=== PATIENT | female | born 1980 | race Caucasian/White ===

== ENCOUNTER 2020-11-21 08:55 | Day surgery (SDC) | payer BC, MEDICAID ==
--- NOTE | 2020-11-19 12:05 | PCM.PREANE ---
<LizaAudrey J - Last Filed: 11/19/20 12:00> Preanesthetic Assessment - Procedure Proposed Procedure: Left knee video arthroscopy, partial medial menisectomy and chondroplasty - Anesthesia/Transfusion/Family Hx Anesthesia History: Prior Anesthesia Without Reaction Family History of Anesthesia Reaction: No Transfusion History: No Prior Transfusion(s) Intubation History: Unknown - Review of Systems Pulmonary: No Symptoms (Smoker: less than 1/2 ppd times years. 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 - Imaging/EKG Impressions: 2019: EKG: NSR rate=71 - Anesthesia Plan Pre-Op Medication Ordered: None - Acknowledgements Anesthesia Type Planned: General Anesthesia (with potential left adductor canal block under US guidance for post operative pain control.) Pt an Appropriate Candidate for the Planned Anesthesia: Yes Alternatives and Risks of Anesthesia Discussed w Pt/Guardian: Yes Pt/Guardian Understands and Agrees with Anesthesia Plan: Yes <Kristen Bradnt - Last Filed: 11/21/20 09:46> Preanesthetic Assessment - Anesthesia/Transfusion/Family Hx Anesthesia History: Prior Anesthesia Without Reaction Family History of Anesthesia Reaction: No Transfusion History: No Prior Transfusion(s) - Review of Systems General: Other (i am hypoglycemic- gets nauseous and weak without eating) Pulmonary: No Symptoms Cardiovascular: No Symptoms Gastrointestinal: No Symptoms Neurological: Numbness, Seizure Other: Reports: Depression, Anxiety - Physical Assessment NPO Status Time: 21:00 Vital Signs: 76 96% 97.7 20 106/70 Height: 5 ft 3 in Weight: 103 kg ASA Class: 3 Mental Status: Alert & Oriented x3 Airway Class: Mallampati = 1 Dentition: Reports: Normal Dentition Thyro-Mental Finger Breadths: 3 Mouth Opening Finger Breadths: 3 ROM/Head Extension: Full Lungs: Normal Respiratory Effort, Wheezing Cardiovascular: Regular Rate, Regular Rhythm - Lab Values: Laboratory Last Values MRSA (PCR) Negative 11/13/20 16:35 - Blood Blood Available: No - Anesthesia Plan Pre-Op Medication Ordered: None - Acknowledgements Anesthesia Type Planned: General Anesthesia, Regional Block Pt an Appropriate Candidate for the Planned Anesthesia: Yes Alternatives and Risks of Anesthesia Discussed w Pt/Guardian: Yes Pt/Guardian Understands and Agrees with Anesthesia Plan: Yes PreAnesthesia Questionnaire HEENT History: Reports: Other (See Below) (wears glasses) Cardiovascular History: Reports: None Respiratory History: Reports: Other (See Below) (smoker) Gastrointestinal History: Reports: None Musculoskeletal History: Reports: Fibromyalgia Neurological History: Reports: Other (See Below) (neuropathy- 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) Endocrine/Metabolic History: Reports: Obesity/BMI 30+ - Past Surgical History GI Surgical History: Reports: Cholecystectomy Female Surgical History: Reports: Section, Tubal Ligation Musculoskeletal Surgical History: Reports: Arthroscopic Knee, Carpal Tunnel (ankle), Shoulder Surgery, Other (See Below) (tendon relsease both legs) - SUBSTANCE USE Tobacco Use Status *Q: Current Every Day Tobacco User Tobacco Use Within Last Twelve Months: Cigarettes Second Hand Smoke Exposure: Yes Days Per Week of Alcohol Use: 1 Number of Drinks Per Day: 1 Total Drinks Per Week: 1 Recreational Drug Use History: No - CURRENT (IN HOUSE) MEDS Current Meds: Current Medications Epinephrine HCl (Adrenalin) 3 mg IRR ONETIME AZUL Stop: 11/21/20 23:00 Lactated Ringer's (Ringers, Lactated) 1,000 mls @ 125 mls/hr IV ASDIRECTED AZUL Stop: 11/21/20 23:00 Lidocaine/Sodium Bicarbonate (Buffered Lidocaine 1% In Ns 8.4%) 0.25 ml IDERM ONETIME PRN PRN Reason: Prior to IV Start Stop: 11/21/20 18:00 Sodium Chloride (Saline Flush) 10 ml FLUSH ASDIRECTED PRN PRN Reason: Keep Vein Open Stop: 11/21/20 18:00 Discontinued Medications Bupivacaine HCl (Sensorcaine-Mpf 0.25%) Confirm Administered Dose 10 ml .ROUTE .STK-MED ONE Stop: 11/21/20 09:11 Dexamethasone (Dexamethasone) Confirm Administered Dose 20 mg .ROUTE .STK-MED ONE Stop: 11/21/20 08:49 Fentanyl (Sublimaze) Confirm Administered Dose 250 mcg .ROUTE .STK-MED ONE Stop: 11/21/20 08:51 Lidocaine HCl (Xylocaine-Mpf 1%) Confirm Administered Dose 4 mls @ as directed .ROUTE .STK-MED ONE Stop: 11/21/20 08:49 Lactated Ringer's (Ringers, Lactated) Confirm Administered Dose 1,000 mls @ as directed .ROUTE .STK-MED ONE Stop: 11/21/20 08:49 Clindamycin Phosphate 900 mg/ (Premix) 50 mls @ 100 mls/hr IV ONETIME ONE Stop: 11/21/20 09:29 Ketamine HCl (Ketalar) Confirm Administered Dose 500 mg .ROUTE .STK-MED ONE Stop: 11/21/20 08:51 Ketorolac Tromethamine (Toradol) Confirm Administered Dose 30 mg .ROUTE .STK-MED ONE Stop: 11/21/20 08:49 Midazolam HCl (Versed 1 Mg/Ml) Confirm Administered Dose 2 mg .ROUTE .STK-MED ONE Stop: 11/21/20 08:50 Ondansetron HCl (Zofran) Confirm Administered Dose 4 mg .ROUTE .STK-MED ONE Stop: 11/21/20 08:49 Propofol (Diprivan 20 Ml) Confirm Administered Dose 200 mg .ROUTE .STK-MED ONE Stop: 11/21/20 08:50 Rocuronium [place] (Zemuron) Confirm Administered Dose 50 mg .ROUTE .STK-MED ONE Stop: 11/21/20 08:49
[~2020-11-21 08:55] MED LIST: Dexamethasone 4 MG/ML 5 ML MDV ONE; Ketamine 500 mg/10 ML MDV ONE; Ketorolac 30 MG/ML SDV ONE; Lactated Ringers 1,000 ML IV SCH; Lactated Ringers 1,000 ML ONE; Lidocaine 1% 4 ML ONE; Lidocaine 1%/Sod Bicarbonate in NS 8.4% 1 ML Syringe IDERM PRN; Midazolam 1 MG/ML 2 ML SDV ONE; Ondansetron 4 MG/2 ML SDV ONE; Propofol 200 MG/20 ML SDV ONE; Rocuronium 50 MG/5 ML Vial ONE; Sodium Chloride 0.9% 10 ML Syringe FLUSH PRN; fentaNYL 250 MCG/5 ML SDV ONE
[2020-11-21] MEDS ORDERED: Clindamycin Phosphate in D5W 900 MG in Premix Bag 1 BAG IV ONE ×2 (09:00)
[2020-11-21] MEDS ORDERED: Bupivacaine 0.25% 10 ML SDV ONE (09:10)
[2020-11-21] MEDS ORDERED: Albuterol 0.083% 2.5 MG/3 ML Neb Soln NEB ONE (09:35)
[2020-11-21] MEDS ORDERED: HYDROmorphone 0.5 MG/0.5 ML Syringe ONE (10:10)
[2020-11-21] MEDS ORDERED: HYDROmorphone 0.5 MG/0.5 ML Syringe IVPUSH PRN (10:45)
[2020-11-21] MEDS ORDERED: diphenhydrAMINE 50 MG/ML SDV IVPUSH PRN (10:45)
[2020-11-21] MEDS ORDERED: Albuterol 0.083% 2.5 MG/3 ML Neb Soln NEB PRN (10:45)
[2020-11-21] MEDS ORDERED: fentaNYL 100 MCG/2 ML SDV IVPUSH PRN (10:45)
[2020-11-21] MEDS ORDERED: Ondansetron 4 MG/2 ML SDV IVPUSH PRN (10:45)
[2020-11-21] MEDS ORDERED: ePHEDrine 50 MG/ML SDV IVPUSH PRN (10:45)
[2020-11-21] MEDS ORDERED: Midazolam 1 MG/ML 2 ML SDV IVPUSH PRN (10:45)
--- NOTE | 2020-11-21 11:20 | PCM.POSTAN ---
POST ANESTHESIA ASSESSMENT - MENTAL STATUS Mental Status: Alert - VITAL SIGNS Vital Signs: Last Vital Signs Temp 97 11/21/20 1115 Pulse 77 11/21/20 1115 Resp 18 11/21/20 1115 BP 93/57 11/21/20 1115 Pulse Ox 96% 11/21/20 1115 - RESPIRATORY Respiratory Status: Respiratory Rate WNL, Airway Patent, O2 Saturation Stable, Supplemental Oxygen - CARDIOVASCULAR CV Status: Pulse Rate WNL, Blood Pressure Stable - GASTROINTESTINAL GI Status: No Symptoms - POST OP HYDRATION Hydration Status: Adequate & Stable
--- NOTE | 2020-11-21 11:32 | PCM48HPAN ---
Post Anesthesia Note - EVALUATION WITHIN 48HRS OF ANESTHETIC Vital Signs in Normal Range: Yes Patient Participated in Evaluation: Yes Respiratory Function Stable: Yes Airway Patent: Yes Cardiovascular Function Stable: Yes Hydration Status Stable: Yes Pain Control Satisfactory: Yes Nausea and Vomiting Control Satisfactory: Yes Mental Status Recovered: Yes Vital Signs: Last Vital Signs Temp 36.5 C 11/21/20 09:05 Pulse 76 11/21/20 09:05 Resp 20 11/21/20 09:05 BP 106/70 11/21/20 09:05 Pulse Ox 97 11/21/20 09:54
[2020-11-21] MEDS ORDERED: EPINEPHrine 1 MG/ML 30 ML MDV IRR SCH (11:45)
[2020-11-21] MEDS ORDERED: Acetaminophen/HYDROcodone 325-5 MG Tab PO SCH (12:45)
--- NOTE | 2020-12-09 07:36 | PCM.OPNOTE ---
- General Post-Op/Procedure Note Date of Surgery/Procedure: 11/21/20 Operative Procedure(s): left knee video arthroscopy with partial medial meniscectomy and partial synovectomy Pre Op Diagnosis: left knee medial meniscus tear with fat pad impingement Post-Op Diagnosis: Same Anesthesia Technique: General LMA, Local Primary Surgeon: Reilly Joshi Anesthesia Provider: Audrey De Jesus Clearing Distribution Clerk: Chacha Yee EBEdwin in mLs: 5 Complications: None Condition: Good
--- NOTE | 2020-12-09 08:17 | OR ---
DATE OF OPERATION: 11/21/2020 SURGEON: Reilly Joshi MD OPERATION PERFORMED: Left knee video arthroscopy with partial medial meniscectomy and partial synovectomy and loose body removal PREOPERATIVE DIAGNOSIS: Left knee medial meniscus tear with fat pad impingement POSTOPERATIVE DIAGNOSIS: Left knee medial meniscus tear with fat pad impingement with loose body and grade 4 chondromalacia medial compartment ANESTHESIA: Technique: General LMA with local. ANESTHESIA PROVIDER: Audrey De Jesus CRNA ROAD PACKER OPERATOR: Chacha Yee PA-C ESTIMATED BLOOD LOSS: 5 mL. COMPLICATIONS: None. CONDITION: Stable. DESCRIPTION OF PROCEDURE: The patient was identified in the preoperative holding area. Proper site was marked and identified by the surgeon. The patient was taken back to the operating theater where after adequate anesthesia, the patient's left lower extremity had a nonsterile tourniquet applied, it was then sterilely prepped and draped in the usual sterile fashion. After being placed in a C-clamp elder, foot of the bed was then lowered. Right lower extremity was placed in a well leg elder. OR time-out was performed. The patient received 2 g IV Ancef. Left lower extremity was exsanguinated. Tourniquet was insufflated to 250 mmHg. A standard anterolateral portal was created. Scope trocar was introduced. The patient was noted to have significant synovitis as well as a plica noted with fat pad impingement. Attention was turned to the medial compartment. With the use of a spinal needle, an anteromedial portal was created. At this time, the patient was noted to have a tear of the medial meniscus as well as a large area of large loose body of the medial side. At this point, I was able to remove the loose body. On the medial side, the patient was noted to have a large full- thickness cartilage defect with grade 4 chondromalacia, especially the posterior femoral condyle. The patient was noted then to have a partial medial meniscus tear and a partial medial meniscectomy was performed of the nonviable portion. ACL was found to be intact in the notch. The patient did have grade 2 chondromalacia of the lateral compartment as well, now with some areas of almost grade 3. Partial synovectomy was then performed to the fat pad back to a stable rim and removal of the plica. The patient at this time had excess saline drained from the knee. 3-0 nylon suture was used for closure of the skin. The patient had a sterile soft dressing applied and was sent to the PACU in stable condition. CLARK /[id number] MTDD
== END 2020-11-21 14:06 | disposition home or self-care (01) ==
LOC: JD.SDS 08:55
PROVIDERS: ATTEND Orthopaedic Surgery
DX: S83.242A Other tear of medial meniscus, current injury, left knee, initial encounter (principal); M25.862 Other specified joint disorders, left knee; M94.262 Chondromalacia, left knee; M23.42 Loose body in knee, left knee; M65.862 Other synovitis and tenosynovitis, left lower leg; F17.210 Nicotine dependence, cigarettes, uncomplicated; Z88.5 Allergy status to narcotic agent; Z88.2 Allergy status to sulfonamides; Z88.0 Allergy status to penicillin; Z88.8 Allergy status to other drugs, medicaments and biological substances; Z91.030 Bee allergy status; Z79.899 Other long term (current) drug therapy; Z98.890 Other specified postprocedural states
CPT/HCPCS: 29875; 29881; 81025; 87641; 94640; A9270; J0171; J1100; J1170; J1200; J1885; J2001; J2250; J2370; J2405; J2704; J2710; J3010; J3490; J7120; 01400

== ENCOUNTER 2023-06-21 08:06 | Day surgery (SDC) | payer MEDICAID ==
[~2023-06-21 08:06] MED LIST changes: +Acetaminophen 325 MG Tab PO SCH; -Dexamethasone 4 MG/ML 5 ML MDV ONE; +HYDROmorphone 0.5 MG/0.5 ML Syringe IVPUSH PRN; -Ketamine 500 mg/10 ML MDV ONE; -Ketorolac 30 MG/ML SDV ONE; -Lactated Ringers 1,000 ML ONE; +Lidocaine 1% 2 ML ONE; -Lidocaine 1% 4 ML ONE; -Lidocaine 1%/Sod Bicarbonate in NS 8.4% 1 ML Syringe IDERM PRN; +Morphine 8 MG, EPINEPHrine 0.3 MG, Ketorolac 30 MG, Sodium Chloride 0.9% 7.9 ML PRN; +Ondansetron 4 MG/2 ML SDV IVPUSH PRN; -Ondansetron 4 MG/2 ML SDV ONE; -Rocuronium 50 MG/5 ML Vial ONE; +Sodium Chloride 0.9% 10 ML Syringe FLUSH SCH; +fentaNYL 100 MCG/2 ML SDV IVPUSH PRN; +fentaNYL 100 MCG/2 ML SDV ONE; -fentaNYL 250 MCG/5 ML SDV ONE; +oxyCODONE ER 10 MG TAB.ER PO SCH
[2023-06-21] MEDS ORDERED: Vancomycin 1 GM SDV ONE (08:09)
[2023-06-21] MEDS ORDERED: Tranexamic Acid 1,000 MG/10 ML Vial ONE (08:09)
[2023-06-21 08:13] LABS: PROTHROMBIN TIME 9.9 SECONDS (9.7-12.0)
[2023-06-21] MEDS ORDERED: Albuterol/Ipratropium 3.0-0.5 MG/3 ML Neb Soln NEB PRN (08:15)
[2023-06-21 08:19] LABS: INR < 0.93
[2023-06-21] MEDS ORDERED: Ropivacaine 0.5% 5 MG/ML 30 ML SDV ONE (08:31)
[2023-06-21] MEDS ORDERED: VANCOmycin 1.5 GM/300 ML 1.5 GM in Premix Bag 1 BAG IV ONE (09:30)
[2023-06-21] MEDS ORDERED: EPINEPHrine 1 MG/ML SDV ONE (10:23)
[2023-06-21] MEDS ORDERED: Sodium Chloride 0.9% 100 ML ONE (10:23)
[2023-06-21] MEDS ORDERED: Phenylephrine 1% 10 MG/ML SDV ONE (10:23)
[2023-06-21] MEDS ORDERED: ePHEDrine 50 MG/ML SDV ONE (10:45)
[2023-06-21] MEDS ORDERED: oxyCODONE 5 MG Tab PO SCH (12:57)
== END 2023-06-21 15:20 | disposition home or self-care (01) ==
LOC: JD.SDS 08:06
PROVIDERS: ATTEND Orthopaedic Surgery
DX: M17.11 Unilateral primary osteoarthritis, right knee (principal); G89.29 Other chronic pain; F41.9 Anxiety disorder, unspecified; F32.A Depression, unspecified; Z79.82 Long term (current) use of aspirin; E66.9 Obesity, unspecified; M79.7 Fibromyalgia; G47.00 Insomnia, unspecified; Z88.5 Allergy status to narcotic agent; Z88.0 Allergy status to penicillin; Z88.8 Allergy status to other drugs, medicaments and biological substances; Z88.1 Allergy status to other antibiotic agents; Z79.899 Other long term (current) drug therapy; Z87.891 Personal history of nicotine dependence; Z79.01 Long term (current) use of anticoagulants
CPT/HCPCS: 0055T; 27447; 36415; 64447; 73560; 85610; 85730; 97116; 97161; A9270; C1713; C1776; J0171; J1885; J2250; J2270; J2370; J2704; J2795; J3010; J3370; J3490; J7120; 01402; J7620-GY

== ENCOUNTER 2024-09-27 09:35 | Day surgery (SDC) | payer MEDICAID, OTHER ==
[~2024-09-27 09:35] MED LIST changes: -Acetaminophen 325 MG Tab PO SCH; +Dexamethasone 4 MG/ML 5 ML MDV ONE; -HYDROmorphone 0.5 MG/0.5 ML Syringe IVPUSH PRN; -Lactated Ringers 1,000 ML IV SCH; -Lidocaine 1% 2 ML ONE; -Morphine 8 MG, EPINEPHrine 0.3 MG, Ketorolac 30 MG, Sodium Chloride 0.9% 7.9 ML PRN; -Ondansetron 4 MG/2 ML SDV IVPUSH PRN; +Ropivacaine 0.5% 5 MG/ML 30 ML SDV ONE; +ceFAZolin 2 GM Vial ONE; +dexmedeTOMIDine HCl 200 MCG/2 ML SDV ONE; -fentaNYL 100 MCG/2 ML SDV IVPUSH PRN; -oxyCODONE ER 10 MG TAB.ER PO SCH
[2024-09-27] MEDS: Lactated Ringers 1,000 ML IV SCH (10:20)
[2024-09-27] MEDS ORDERED: Bupivacaine 0.25% 10 ML SDV ONE (10:52)
[2024-09-27] MEDS ORDERED: EPINEPHrine 1 MG/ML SDV ONE (11:07)
[2024-09-27] MEDS ORDERED: Lidocaine 1% 4 ML ONE (11:11)
[2024-09-27] MEDS ORDERED: Rocuronium 50 MG/5 ML Vial ONE (11:40)
[2024-09-27] MEDS ORDERED: Propofol 200 MG/20 ML SDV ONE ×2 (11:46→11:58)
[2024-09-27] MEDS ORDERED: Clindamycin Phosphate in D5W 50 ML IV ONE (11:55)
[2024-09-27] MEDS ORDERED: Midazolam 1 MG/ML 2 ML SDV ONE (12:00)
[2024-09-27] MEDS ORDERED: fentaNYL 100 MCG/2 ML SDV ONE (12:03)
[2024-09-27] MEDS ORDERED: ePHEDrine 50 MG/ML SDV ONE (12:10)
[2024-09-27] MEDS ORDERED: Phenylephrine 1% 10 MG/ML SDV ONE (12:18)
[2024-09-27] MEDS ORDERED: Ondansetron 4 MG/2 ML SDV ONE (12:37)
[2024-09-27] MEDS: Bupivacaine 0.25% 10 ML SDV ONE (13:07)
[2024-09-27] MEDS: Triamcinolone Acetonide 40 MG/ML 1 ML SDV ONE (13:07)
[2024-09-27] MEDS ORDERED: HYDROmorphone 0.5 MG/0.5 ML Syringe IVPUSH PRN (13:28)
[2024-09-27] MEDS ORDERED: fentaNYL 100 MCG/2 ML SDV IVPUSH PRN (13:28)
[2024-09-27] MEDS ORDERED: Ondansetron 4 MG/2 ML SDV IVPUSH PRN (13:28)
[2024-09-27] MEDS: oxyCODONE 5 MG Tab PO PRN (13:29)
[2024-09-27] MEDS ORDERED: Ketorolac 30 MG/ML SDV IVPUSH PRN (13:40)
== END 2024-09-27 14:30 | disposition home or self-care (01) ==
LOC: JD.SDS 09:35
PROVIDERS: ATTEND Orthopaedic Surgery
DX: M20.22 Hallux rigidus, left foot (principal); M70.61 Trochanteric bursitis, right hip; F41.1 Generalized anxiety disorder; F32.A Depression, unspecified; J45.20 Mild intermittent asthma, uncomplicated; Z79.899 Other long term (current) drug therapy
CPT/HCPCS: 20610; 28750; 64445; 76000; A9270; J0171; J0665; J0690; J0736; J1100; J2250; J2371; J2405; J2704; J2795; J3010; J3301; J7120; C1713; J3490